=== PATIENT | male | born 1995 | race Caucasian/White ===

== ENCOUNTER 2021-04-30 21:33 | Emergency (ER) | payer BC, SELFPAY ==
[2021-04-30 21:35] VITALS: BP 147/93; PULSE 108; RESP 18; TEMP 36.7; O2SAT 97
--- NOTE | 2021-04-30 21:54 | ED.HEATRA ---
HPI - Head Injury General Chief complaint: Head Injury Stated complaint: baseball to the face - lip lac, missing tooth Time Seen by Provider: 04/30/21 21:49 History of Present Illness HPI Narrative: 25 yo male presents to the ED after being struck by a softball. He was struck in the face by a soft ball shortly before arrival. It knocked out his tooth #8. He also sustained a laceration to the top lip. No LOC. Pain is moderate. Lost tooth in the dirt, but friend found it and is bringing it here. Related Data Allergies Allergy/AdvReac Type Severity Reaction Status Date / Time No Known Allergies Allergy Verified 04/30/21 22:04 Review of Systems Review of Systems: All systems reviewed & are unremarkable except as noted in HPI and below Constitutional: Constitutional: Denies fever(s) Eyes: Eyes: Reports no additional eye complaints and Denies change in vision ENT: Denies dizziness Cardiovascular: Cardiovascular: Denies chest pain Respiratory: Respiratory: Denies dyspnea Gastrointestinal: Gastrointestinal: Denies abdominal pain Neurologic: Denies dizziness and Denies weakness [facility] Past Medical History Medical History BMI 32.0-32.9,adult Surgical History Surgical History History of wisdom tooth extraction Family History Family History Father Heart disease Cerebrovascular accident Mother No problems noted. Sibling No problems noted. Social History Social History Smoking status: Never smoker Tobacco type: cigarettes Second hand tobacco smoke exposure: No Alcohol intake: current Substance use: never Substance use type: does not use Additional occupation/education comments: [employer] Gender identity (if verbalized by the patient): Male Exam Const: General: healthy appearing, no acute distress and alert Orientation/consciousness: patient oriented x3 HENMT: Other: 2 cm irregular laceration through kalia border of upper lip. Tooth 18 complete avulsion Resp: Effort & Inspection: normal respiratory effort Auscultation: clear to auscultation bilaterally Cardio: Rate: regular rate Rhythm: regular rhythm Skin: General skin exam: normal color Neuro: General: patient oriented x3 and moves all extremities Cranial nerves: Yes CN's II-XII intact bilaterally Gait exam (Neuro): Normal gait present Extrem: General: normal to inspection Course Vital Signs Vital signs: Vital Signs Temperature 36.7 C 04/30/21 21:35 Pulse Rate 108 H 04/30/21 21:35 Respiratory Rate 18 04/30/21 21:35 Blood Pressure 147/93 H 04/30/21 21:35 Pulse Oximetry 97 04/30/21 21:35 Temperature 36.7 C 04/30/21 21:35 Pulse Rate 108 H 04/30/21 21:35 Respiratory Rate 18 04/30/21 21:35 Blood Pressure 147/93 H 04/30/21 21:35 Pulse Oximetry 97 04/30/21 21:35 Procedures Laceration Laceration 1: Site: face (upper lip) Side (If applicable): right Size (cm): 2.5 Description: irregular Depth: involves muscle layer Local Anesthetic: lidocaine 1% (infraorbital block) Amount of anesthesia used (mL): 4 Pre-repair: wound explored and irrigated ====== Skin Level ====== Skin layer closed with: other (fast gut) Size (cm): 5-0 Number of sutures: 8 ====== Subcutaneous Layer ====== ====== Muscle Layer ====== ====== Tendon Layer ====== Other Procedure Procedure 1: Other Procedure: Tooth reimplantation An infraorbital nerve block was performed on the right side The tooth was gently rinsed with saline. The socket was then irrigated and clot removed. The tooth was then placed back into the socket ensuring correct postion. This tooth and the surrounding teeth wer
[2021-05-01] MEDS: CLINDAMYCIN HCL 150 MG CAP 300 MG PO (00:25)
[2021-05-01] MEDS: HYDROcodone/acetaminophen (*CRX) 5-325 MG TABLET 1 TAB PO (00:25)
--- NOTE | 2021-05-01 00:28 | PC.NURSE ---
Exit vitals taken on pt, wrote on paperwork that went home with pt by accident. Vitals stable and within normal guidelines.
== END 2021-05-01 00:28 | disposition home or self-care (01) ==
PROVIDERS: Emergency Provider Emergency Medicine; PCP Family Medicine
DX: S03.2XXA Dislocation of tooth, initial encounter (principal); S01.511A Laceration without foreign body of lip, initial encounter; W21.07XA Struck by softball, initial encounter; Y93.64 Activity, baseball
CPT/HCPCS: 12011; 99283; A9270

== ENCOUNTER 2021-05-02 08:26 | Outpatient (CLI) | payer BC, SELFPAY ==
[2021-05-02 09:02] LABS: Basophils Absolute Auto 0.1 K/mm3 (0.0-0.1); Eosinophils Absolute Auto 0.3 K/mm3 (0-0.3); Eosinophils Percent Auto 4.2 % (0-4.4); Hematocrit 48.3 % (42.0-52.0); Hemoglobin 16.6 g/dL (14.0-18.0); Immature Granulocyte Absolute 0.01 K/mm3 (0.00-0.031); Immature Granulocyte Percent A 0.1 % (0-0.5); Lymphocytes Absolute Auto 1.69 K/mm3 (0.9-3.2); Lymphocytes Percent Auto 24.4 % (18.3-44.2); Mean Corpuscular HGB Conc 34.4 g/dl (32-36); Mean Corpuscular Hemoglobin 29.3 pg (26-34); Mean Corpuscular Volume 85.3 fl (80-100); Mean Platelet Volume 10.6 fl (7.4-10.4); Monocytes Absolute Auto 0.6 K/mm3 (0.1-0.6); Monocytes Percent Auto 8.8 % (2.6-8.5); Neutrophils Absolute Auto 4.3 K/mm3 (1.3-6.7); Neutrophils Percent Auto 61.5 % (45.5-73.1); Platelet Count Result 210 k/mm3 (150-375); Red Blood Count 5.66 M/mm3 (4.6-6.20); Red Cell Distribution Width 12.4 % (11.5-14.5); White Blood Count 6.9 K/mm3 (4.5-10.0)
[2021-05-02 09:16] LABS: Alanine Aminotransferase 26 U/L (4-50); Albumin Level 5.1 g/dL (3.5-5.1); Alkaline Phosphatase 53 U/L (38-126); Anion Gap 16 mmol/L (8-16); Aspartate Amino Transferase 25 U/L (17-59); Bilirubin,Total 0.8 mg/dL (0.2-1.3); Blood Urea Nitrogen 19 mg/dL (9-20); Calcium 10.5 mg/dL (8.4-10.2); Carbon Dioxide 20 mmol/L (22-30); Chloride 103 mmol/L (98-107); Cholesterol 249 mg/dL (0-200); Estimated Glomerular Filt Rate > 60; Glucose 95 mg/dL (65-110); HDL Direct 48 mg/dL; Potassium 4.7 mmol/L (3.4-5.0); Sodium 139 mmol/L (137-145); Triglycerides 129 mg/dL (<150)
[2021-05-02 09:26] LABS: LDL Cholesterol Direct 148 mg/dL
[2021-05-06 20:15] LABS: Apolipoprotein B 128 mg/dL (<90)
[2021-05-06 22:47] LABS: Lipoprotein A 27 nmol/L (<75)
== END 2021-05-02 08:27 | disposition home or self-care (01) ==
LOC: ANHLAB 08:29
PROVIDERS: PCP Family Medicine; Visit Provider Nurse Practitioner Family
DX: E78.00 Pure hypercholesterolemia, unspecified (principal); Z82.49 Family history of ischemic heart disease and other diseases of the circulatory system; Z68.32 Body mass index [BMI] 32.0-32.9, adult; Z13.29 Encounter for screening for other suspected endocrine disorder; Z13.220 Encounter for screening for lipoid disorders
CPT/HCPCS: 36415; 80053; 80061; 82172; 83695; 84443; 85025

== ENCOUNTER 2021-05-09 07:48 | Outpatient (CLI) | payer BC, SELFPAY ==
[2021-05-09 08:21] LABS: Calcium 9.8 mg/dL (8.4-10.2)
== END 2021-05-09 07:49 | disposition home or self-care (01) ==
LOC: ANHLAB 07:50
PROVIDERS: PCP Family Medicine; Visit Provider Nurse Practitioner Family
DX: E83.52 Hypercalcemia (principal)
CPT/HCPCS: 36415; 82310

== ENCOUNTER 2022-08-11 17:18 | Emergency (ER) | payer OTHER, SELFPAY ==
--- NOTE | ~2022-08-11 | XR_ITS ---
EXAMINATION: XR chest 2V Exam Date/Time: 08/11/2022 17:42 DISPUTE COORDINATOR HISTORY: cough x's 1 month Comparison: None available. RESULT: Lines, tubes, and devices: None. Lungs and pleura: Clear. Cardiomediastinal silhouette: Unremarkable. Other: No acute osseous or upper abdominal finding. IMPRESSION: No acute cardiopulmonary process. Reviewed, dictated and finalized at location K. UTE COORDINATOR
[2022-08-11 17:40] VITALS: BP 144/79; PULSE 77; RESP 20; TEMP 37.1; O2SAT 99
--- NOTE | 2022-08-11 18:18 | ED.URI ---
HPI - URI/Sore Throat General Chief Complaint: Upper Respiratory Infection Stated Complaint: cough Source: patient Mode of arrival: ambulatory Limitations: no limitations History of Present Illness HPI Narrative: This is a27 year old male that has had bronchitis since Jun and has had a lingering cough and it has continued he thought it had subsided for about 1 week but it then return. Now it is getting worse and he want to stop it because it has been 6 weeks already . Related Data Allergies Allergy/AdvReac Type Severity Reaction Status Date / Time banana Allergy Unknown Verified 08/11/22 17:46 Review of Systems Review of Systems: coughing, and a little congestion with post nasal drip All systems reviewed & are unremarkable except as noted in HPI and below PMFSH Past Medical History Medical History BMI 32.0-32.9,adult Surgical History Surgical History History of wisdom tooth extraction Family History Family History Father Heart disease Cerebrovascular accident Mother No problems noted. Sibling No problems noted. Social History Social History Smoking status: Never smoker Tobacco type: cigarettes Second hand tobacco smoke exposure: No Alcohol intake: current Substance use: never Substance use type: does not use Additional occupation/education comments: [employer] Gender identity (if verbalized by the patient): Male Comments At time as signature, I have reviewed and agree with nursing past medical, social, surgical and family history. Please see nursing chart for further information. There is no relevant family history pertinent to the presenting complaint. Exam Narrative: GENERAL:Well-appearing, well-nourished, and in no acute distress. HEAD:Normocephalic EYES: PERRLA ENT: Nares clear, no rhinorrhea or epistaxis. Mucous membranes moist. CHEST: Clear to scattered intermittent wheezes auscultation. No respiratory distress. HEART: Regular rate and rhythm. Normal peripheral pulses. ABDOMEN: Soft, nontender, nondistended, normal active bowel sounds. EXTREMITIES: Normal range of motion. No edema. SKIN: Warm, dry, no rash. NEURO: No focal deficits. Alert and oriented x3. Course Course Level of Care: Express Care Visit Vital Signs Vital signs: Vital Signs Temperature 98.8 F 08/11/22 17:40 Pulse Rate 77 08/11/22 17:40 Respiratory Rate 20 08/11/22 17:40 Blood Pressure 144/79 H 08/11/22 17:40 Pulse Oximetry 99 08/11/22 17:40 Oxygen Delivery Room Air 08/11/22 17:40 Temperature 98.8 F 08/11/22 17:40 Pulse Rate 77 08/11/22 17:40 Respiratory Rate 20 08/11/22 17:40 Blood Pressure 144/79 H 08/11/22 17:40 Pulse Oximetry 99 08/11/22 17:40 Oxygen Delivery Room Air 08/11/22 17:40 MDM - URI/Sore Throat Differential Diagnosis Differential diagnosis: Likely upper respiratory infection, otitis media, sinusitis, viral infection, bronchitis and influenza Discharge Plan Discharge Clinical Impression: Bronchitis Patient Disposition: Home, Self-Care Condition: Stable Instructions: Antibiotic Form, Chronic Bronchitis (ED) Additional Instructions: Drink plenty of fluids Take medication as directed Prescriptions: New albuterol sulfate [Proventil HFA] 90 mcg/actuation HFA aerosol inhaler 2 puff inhalation QID PRN (Reason: shortness of breath or wheezing) Qty: 8.5 0RF methylprednisolone [Medrol (Harpreet)] 4 mg tablets,dose pack See Rx Instructions .ROUTE .COMPLEX Qty: 21 0RF Rx Instructions: orally per package directions benzonatate 200 mg capsule 200 mg PO TID PRN (Reason: cough) Qty: 14 0RF Follow-up/Referrals: UNKNOWN,DOCTOR [Primary Care Provider] - Time of Disposition: 1
== END 2022-08-11 18:31 | disposition home or self-care (01) ==
PROVIDERS: Emergency Provider Nurse Practitioner Family
DX: J40 Bronchitis, not specified as acute or chronic (principal)
CPT/HCPCS: 71046; 99213; G0463

== ENCOUNTER 2022-12-29 08:30 | Outpatient (CLI) | payer OTHER, SELFPAY ==
[2022-12-29 19:14] LABS: Cholesterol 219 mg/dL (0-200); HDL Direct 30 mg/dL; Triglycerides 177 mg/dL (<150)
[2022-12-29 19:32] LABS: LDL Cholesterol Direct 137 mg/dL
== END 2022-12-29 08:31 | disposition home or self-care (01) ==
LOC: ANHGOSHLAB 08:32
PROVIDERS: Visit Provider Family Medicine
DX: E78.5 Hyperlipidemia, unspecified (principal)
CPT/HCPCS: 36415; 80061

== ENCOUNTER 2023-04-14 10:38 | Outpatient (CLI) | payer OTHER, SELFPAY ==
--- NOTE | 2023-04-14 | ECG_ITS ---
Measurements Intervals [place] Rate: 53 P: 40 WI: 148 QRS: -6 QRSD: 124 T: 31 QT: 430 QTc: 407 Interpretive Statements SINUS BRADYCARDIA RIGHT BUNDLE BRANCH BLOCK ABNORMAL ECG NO PREVIOUS ECG AVAILABLE FOR COMPARISON Electronically Signed On 04-14-2023 11:37:53 CDT by Abdirizak Molina D.O.
== END 2023-04-14 10:39 | disposition home or self-care (01) ==
PROVIDERS: PCP Family Medicine; Visit Provider Nurse Practitioner Adult Health
DX: R00.2 Palpitations (principal); Z82.49 Family history of ischemic heart disease and other diseases of the circulatory system; I45.10 Unspecified right bundle-branch block
CPT/HCPCS: 93005

== ENCOUNTER 2023-05-17 07:23 | Outpatient (CLI) | payer OTHER, SELFPAY ==
--- NOTE | 2023-05-17 | ECHO_ITS ---
Patient Info Name: Justino Molina Age: 27 years : 1995 Gender: Male Ht: 71 in Wt: 236 lbs BSA: 2.35 m2 HR: 65 bpm BP: 131 / 87 mmHg Technical Quality: Good Exam Date: 05/17/2023 7:46 AM Exam Location: [facility] Patient Status: Outpatient Admit Date: 05/17/2023 Staff Ordering Physician: Jennifer, Luis Alberto Valdez APRN [employer] Project Manager: Camryn Perez RDCS Attending Provider: Robbie, Luis Alberto Valdez APRN Referring Physician: Jennifer WEAVER; Exam Type: CA echo doppler color flow Study Info Indications R00.2 - Palpitations Z82.49 - Family history of ischemic heart disease and other diseases of the circulatory system Complete two-dimensional, color flow and Doppler transthoracic echocardiogram is performed. Summary 1. Complete two-dimensional, color flow and Doppler transthoracic echocardiogram is performed. 2. Left ventricular chamber dimension is normal. 3. Left ventricular systolic function is normal, estimated at 60-65%. 4. The left ventricular diastolic function is normal. 5. E/e' 5 is not elevated. 6. Global longitudinal strain is normal at -20.7%. 7. Left atrial chamber dimension is mildly enlarged. 8. There is trace mitral valve regurgitation. 9. There is trace tricuspid valve regurgitation. 10. No pulmonary hypertension, estimated pulmonary arterial systolic pressure is 29 mmHg. 11. There is trace pulmonic regurgitation. Left Ventricle E/e' 5 is not elevated. Global longitudinal strain is normal at -20.7%. Left ventricular chamber dimension is normal. Left ventricular systolic function is normal, estimated at 60-65%. The left ventricular diastolic function is normal. Right Ventricle Right ventricular systolic function is normal and with normal TAPSE 3.2 cm. Right ventricular chamber dimension is normal. Left Atria Left atrial chamber dimension is mildly enlarged. Right Atria Right atrial chamber dimension is normal. Aortic Valve The aortic valve is trileaflet. There is no aortic valve stenosis. There is no aortic valve regurgitation. Pulmonic Valve There is trace pulmonic regurgitation. Mitral Valve There is no mitral valve stenosis. There is trace mitral valve regurgitation. Tricuspid Valve There is trace tricuspid valve regurgitation. No pulmonary hypertension, estimated pulmonary arterial systolic pressure is 29 mmHg. Pericardium/Pleural There is no pericardial effusion. Inferior Vena Cava Normal inferior vena cava with >50% collapse upon inspiration consistent with normal right atrial pressure, 5 mmHg. Aorta The aortic root size at the sinus of Valsalva is normal. Left Ventricular Outflow Tract Name Value Normal LVOT 2D LVOT Diameter 2.0 cm LVOT Doppler LVOT Peak Gradient 5 mmHg LVOT Mean Gradient 3 mmHg LVOT VTI 25 cm LVOT VTI/AV VTI Ratio 0.9 LVOT Stroke Volume 79 ml LVOT CO 4.7 l/min LVOT CI 2.0 l/min/m2 Pulmonic Valve Name
== END 2023-05-17 07:24 | disposition home or self-care (01) ==
PROVIDERS: PCP Family Medicine; Visit Provider Nurse Practitioner Adult Health
DX: R00.2 Palpitations (principal); R06.6 Hiccough; Z82.49 Family history of ischemic heart disease and other diseases of the circulatory system
CPT/HCPCS: 93306

== ENCOUNTER 2023-08-30 07:03 | Outpatient (CLI) | payer OTHER, SELFPAY ==
[2023-08-30 07:38] LABS: Basophils Absolute Auto 0.1 K/mm3 (0.0-0.1); Basophils Percent Auto 0.9 % (0.2-1.2); Eosinophils Absolute Auto 0.6 K/mm3 (0-0.3); Eosinophils Percent Auto 8.1 % (0-4.4); Hematocrit 46.2 % (42.0-52.0); Hemoglobin 15.3 g/dL (14.0-18.0); Immature Granulocyte Absolute 0.01 K/mm3 (0.00-0.031); Immature Granulocyte Percent A 0.1 % (0-0.5); Lymphocytes Absolute Auto 2.58 K/mm3 (0.9-3.2); Lymphocytes Percent Auto 37.9 % (18.3-44.2); Mean Corpuscular HGB Conc 33.1 g/dl (32-36); Mean Corpuscular Hemoglobin 29.1 pg (26-34); Mean Corpuscular Volume 87.8 fl (80-100); Mean Platelet Volume 10.4 fl (7.4-10.4); Monocytes Absolute Auto 0.4 K/mm3 (0.1-0.6); Neutrophils Absolute Auto 3.2 K/mm3 (1.3-6.7); Platelet Count Result 219 k/mm3 (150-375); Red Blood Count 5.26 M/mm3 (4.6-6.20); Red Cell Distribution Width 12.7 % (11.5-14.5); White Blood Count 6.8 K/mm3 (4.5-10.0)
[2023-08-30 08:58] LABS: Alanine Aminotransferase 35 U/L (6-50); Albumin Level 4.5 g/dL (3.5-5.1); Alkaline Phosphatase 38 U/L (38-126); Anion Gap 11 mmol/L (8-16); Aspartate Amino Transferase 28 U/L (17-59); Bilirubin,Total 0.7 mg/dL (0.2-1.3); Blood Urea Nitrogen 14 mg/dL (9-20); Calcium 9.4 mg/dL (8.4-10.2); Carbon Dioxide 25 mmol/L (22-30); Chloride 103 mmol/L (98-107); Cholesterol 222 mg/dL (0-200); Estimated Glomerular Filt Rate > 60; Glucose 92 mg/dL (65-110); HDL Direct 38 mg/dL; Sodium 139 mmol/L (137-145); Triglycerides 237 mg/dL (<150)
[2023-08-30 09:09] LABS: LDL Cholesterol Direct 133 mg/dL
[2023-08-30 09:33] LABS: Total Triiodothyronine (T3) 1.31 NG/ML (0.97-1.69)
[2023-08-30 09:42] LABS: Free T4 Free Thyroxine 1.13 ng/mL (0.78-2.19); Vitamin D 25 Hydroxy 29.9 ng/mL
[2023-08-30 11:42] LABS: Creatinine Urine 131.5 mg/dL
[2023-08-30 12:25] LABS: MALB Creatinine Ratio < 4.6 mg/g (0-30); Microalbumin Urine Random < 6.0 mg/L (0-16.7)
== END 2023-08-30 07:04 | disposition home or self-care (01) ==
LOC: ANHLAB 07:05
PROVIDERS: PCP Family Medicine; Visit Provider Nurse Practitioner Adult Health
DX: E78.5 Hyperlipidemia, unspecified (principal); R53.83 Other fatigue; R53.1 Weakness; I10 Essential (primary) hypertension; Z00.00 Encounter for general adult medical examination without abnormal findings; E55.9 Vitamin D deficiency, unspecified
CPT/HCPCS: 36415; 80053; 80061; 82043; 82306; 84439; 84443; 84480; 85025

== ENCOUNTER 2024-04-04 10:07 | Outpatient (CLI) | payer OTHER, SELFPAY ==
[2024-04-04 14:04] LABS: Cholesterol 207 mg/dL (0-200); HDL Direct 36 mg/dL; Triglycerides 151 mg/dL (<150)
[2024-04-04 14:16] LABS: LDL Cholesterol Direct 134 mg/dL
== END 2024-04-04 10:08 | disposition home or self-care (01) ==
LOC: ANHGOSHLAB 10:09
PROVIDERS: PCP Family Medicine; Visit Provider Family Medicine
DX: E78.5 Hyperlipidemia, unspecified (principal)
CPT/HCPCS: 36415; 80061

== ENCOUNTER 2024-05-19 19:10 | Emergency (ER) | payer BC, OTHER, SELFPAY ==
[2024-05-19 19:18] VITALS: BP 139/78; PULSE 60; RESP 16; TEMP 36.9; O2SAT 99
--- NOTE | 2024-05-19 19:41 | ED.GENADULT ---
HPI - General Adult General Chief complaint: Back Pain/Injury Stated complaint: R SIDE RIB/CHEST PAIN Time Seen by Provider: 05/19/24 19:33 Source: patient and RN notes reviewed Mode of arrival: ambulatory Limitations: no limitations History of Present Illness HPI narrative: Patient presents today complaining of right lower anterior rib pain. Symptoms began 6 days ago after he was throwing a baseball and worsened again after he picked up his child today. Denies shortness of breath or any additional symptoms. Pain increases with movement of the right arm and deep breath. He has been taking Tylenol and ibuprofen with some relief. Related Data Home Medications Medication Instructions Recorded Confirmed No Home Medications 06/22/23 06/22/23 Allergies Allergy/AdvReac Type Severity Reaction Status Date / Time banana Allergy Unknown Verified 06/22/23 15:16 Review of Systems Review of Systems: CONSTITUTIONAL: Denies body aches, fever, chills, or sweats. EYES: Denies visual changes, redness, or discharge. ENT: Denies rhinorrhea, congestion, sore throat, or otalgia. CARDIOVASCULAR: Denies chest pain, palpitations, or edema. RESPIRATORY: Denies cough or dyspnea. GASTROINTESTINAL: Denies abdominal pain, nausea, vomiting, or diarrhea. GENITOURINARY: Denies dysuria or hematuria. SKIN: Denies rash, itching, or wounds. MUSCULOSKELETAL: Denies back pain, joint pain, or myalgia.+ chest wall pain NEUROLOGIC: Denies headache, numbness, tingling, or weakness. PSYCH: Denies depression or anxiety. COUNTS INCLUDE 234 BEDS AT THE [facility] Past Medical History Medical History BMI 32.0-32.9,adult Surgical History Surgical History History of wisdom tooth extraction Family History Family History Father Heart disease Cerebrovascular accident Mother No problems noted. Sibling No problems noted. Social History Social History Smoking status: Never smoker Tobacco type: cigarettes Second hand tobacco smoke exposure: No Alcohol intake: current Substance use: never Substance use type: does not use Living arrangements: with family Occupation/Education: occupation Additional occupation/education comments: [employer] Gender identity (if verbalized by the patient): Male Comments At time of signature, I have reviewed and agree with nursing past medical, surgical, social and family history unless otherwise noted. Please see nursing chart for further information. There is no relevant family history pertinent to the presenting complaint Exam Narrative: GENERAL: Well-appearing, well-nourished, and in no acute distress. HEAD: Normocephalic, atraumatic. EYES: EOMI. No redness or drainage. Conjunctivae normal. ENT: Mucous membranes pink and moist. NECK: Normal AROM. CHEST: No respiratory distress. Clear to auscultation. Point tenderness of the right lower anterior ribs. No crepitus, step-off, deformity, edema noted. HEART: Regular rate and rhythm. No murmur appreciated. Normal peripheral pulses. EXTREMITIES: Normal range of motion. No edema. SKIN: Warm, dry, no rash. Capillary refill normal. Normal skin turgor. NEURO: No focal deficits. Alert and oriented x3. Gait steady. PSYCH: Normal affect. No signs of depression or anxiety. Course Course Level of Care: Express Care Visit Vital Signs Vital signs: Vital Signs Temperature 98.5 F 05/19/24 19:18 Pulse Rate 60 05/19/24 19:18 Respiratory Rate 16 05/19/24 19:18 Blood Pressure 139/78 05/19/24 19:18 Pulse Oximetry 99 05/19/24 19:18 Temperature 98.5 F 05/19/24 19:18 Pulse Rate 60 05/19/24 19:18 Respiratory Rate 16 05/19/24 19:18 Blood Pressure 139/78 05/19/24 19:18 Pulse Oximetry 99 05/19/24
== END 2024-05-19 19:50 | disposition home or self-care (01) ==
PROVIDERS: Emergency Provider Nurse Practitioner; PCP Family Medicine
DX: S29.011A Strain of muscle and tendon of front wall of thorax, initial encounter (principal); X58.XXXA Exposure to other specified factors, initial encounter
CPT/HCPCS: 99212; G0463

== ENCOUNTER 2024-07-30 21:55 | Emergency (ER) | payer BC, OTHER, SELFPAY ==
[2024-07-30 21:56] VITALS: BP 114/73; PULSE 86; RESP 16; TEMP 36.7; O2SAT 100
[2024-07-30 22:23] LABS: Basophils Percent Auto 0.3 % (0.2-1.2); Eosinophils Absolute Auto 0.4 K/mm3 (0-0.3); Eosinophils Percent Auto 2.6 % (0-4.4); Hematocrit 46.7 % (42.0-52.0); Hemoglobin 16.8 g/dL (14.0-18.0); Immature Granulocyte Absolute 0.03 K/mm3 (0.00-0.031); Immature Granulocyte Percent A 0.2 % (0-0.5); Lymphocytes Absolute Auto 1.72 K/mm3 (0.9-3.2); Lymphocytes Percent Auto 12.8 % (18.3-44.2); Mean Corpuscular Volume 83.4 fl (80-100); Mean Platelet Volume 10.1 fl (7.4-10.4); Monocytes Absolute Auto 1.1 K/mm3 (0.1-0.6); Monocytes Percent Auto 7.8 % (2.6-8.5); Neutrophils Absolute Auto 10.2 K/mm3 (1.3-6.7); Neutrophils Percent Auto 76.3 % (45.5-73.1); Platelet Count Result 221 k/mm3 (150-375); Red Cell Distribution Width 12.6 % (11.5-14.5); White Blood Count 13.4 K/mm3 (4.5-10.0)
[2024-07-30 22:42] LABS: Alanine Aminotransferase 40 U/L (6-50); Albumin Level 5.4 g/dL (3.5-5.1); Alkaline Phosphatase 46 U/L (38-126); Aspartate Amino Transferase 31 U/L (17-59); Blood Urea Nitrogen 18 mg/dL (9-20); Calcium 10.1 mg/dL (8.4-10.2); Chloride 102 mmol/L (98-107); Estimated CRCL calculation 117 ml/min; Estimated Glomerular Filt Rate > 60; Glucose 127 mg/dL (65-110); Lipase 60 U/L (23-300); Potassium 4.2 mmol/L (3.4-5.0); Sodium 139 mmol/L (137-145)
[2024-07-30 22:59] LABS: Influenza A QL RT-PCR Negative (Negative); Influenza B QL RT-PCR Negative (Negative); RSV RNA, RT-PCR Negative (Negative); SARS-CoV-2 RNA PCR Negative (Negative)
--- NOTE | 2024-07-30 22:59 | ED.NAVMDI ---
HPI - Nausea/Vomiting/Diarrhea General Chief complaint: Nausea/Vomiting/Diarrhea Stated complaint: puking shaking body aches diarrhea Time Seen by Provider: 07/30/24 22:41 Source: patient Mode of arrival: ambulatory Limitations: no limitations History of Present Illness HPI Narrative: This is a 29-year-old male who presents to the ED for chief complaint of N/V/D beginning this morning. Reports that he has had associated body aches, chills, cough and rhinorrhea. 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 Patient states that he started to have some more back pain and abdominal pain after the many episodes of vomiting and diarrhea. Denies any GI bleeding symptoms. Denies urinary symptoms. Related Data Allergies Allergy/AdvReac Type Severity Reaction Status Date / Time banana Allergy Unknown Verified 06/22/23 15:16 Review of Systems Review of Systems: All systems as dictated in HPI PMFSH Past Medical History Medical History BMI 32.0-32.9,adult Surgical History Surgical History History of wisdom tooth extraction Family History Family History Father Heart disease Cerebrovascular accident Mother No problems noted. Sibling No problems noted. Social History Social History Smoking status: Never smoker Tobacco type: cigarettes Second hand tobacco smoke exposure: No Alcohol intake: current Substance use: never Substance use type: does not use Living arrangements: with family Occupation/Education: occupation Additional occupation/education comments: [employer] Gender identity (if verbalized by the patient): Male Exam Narrative: GENERAL: Well-appearing, well-nourished, and in no acute distress. HEAD: Normocephalic, atraumatic. EYES: PERRLA and EOMI. ENT: Nares clear, no rhinorrhea or epistaxis. Mucous membranes moist. Oropharynx without tonsillar hypertrophy exudate or other lesions. NECK: Supple. No adenopathy or masses. CHEST: No respiratory distress. Clear to auscultation. No wheezes rales or rhonchi HEART: Regular rate and rhythm. No murmur heard. Normal peripheral pulses. ABDOMEN: Soft, nontender, nondistended, normal active bowel sounds. MSK: Normal range of motion. No edema. SKIN: Warm, dry, no rash. NEURO: Alert and oriented x4. No focal deficits. PSYCH: Normal mood and affect. Course Vital Signs Vital signs: Vital Signs Temperature 98.0 F 07/30/24 21:56 Pulse Rate 86 07/30/24 21:56 Respiratory Rate 16 07/30/24 21:56 Blood Pressure 114/73 07/30/24 21:56 Pulse Oximetry 100 07/30/24 21:56 Temperature 98.0 F 07/30/24 21:56 Pulse Rate 75 07/31/24 00:33 Respiratory Rate 17 07/31/24 00:33 Blood Pressure 123/62 07/31/24 00:33 Pulse Oximetry 100 07/31/24 00:33 Oxygen Delivery Room Air 07/30/24 23:43 MDM - Nausea/Vomiting/Diarrhea MDM Narrative Medical decision making narrative: This is a 29 yo male who presents to the ED for chief complaint of N/V/D. Vitals are normal. Exam shows no abdominal tenderness. No evidence of acute abdomen. Presentation most likely consistent with viral gastroenteritis Lab work shows mildly elevated white count 13.4, consistent with acute phase reaction with vomiting. CMP and electrolytes are normal. Viral swabs are negative. Patient is feeling much improved after a L of fluids, antiemetics and Toradol. Patient will be discharged in stable condition. Supportive measures discussed and return precautions given. Patient is understanding and agreeable with plan for discharge with PCP follow-up. Lab Data 07/30/24 22:18 07/30/24 22:18 Labs: Lab Results 07/30/24 Range/Units 22:18 WBC 13.4 H (4.5-10.0) K/mm3 RBC 5.60 (4.6-6.20) M/mm3 Hgb 16.8 (14.0-18.0) g/dL Hct 46.7 (42.0-52.0) % MCV 83.4 (80-100) fl MCH 30.0 (26-34) pg MCHC 36.0 (32-36) g/dl RDW 12.6 (11.5-14.5) % Plt Count 221 (150-375) k/mm3 MPV 10.1 (7.4-10.4) fl Immature Gran % (Auto) 0.2 (0-0.5) % Neut % (Auto) 76.3 H (45.5-73.1) % Lymph % (Auto) 12.8 L (18.3-44.2) % [place] % (Auto) 7.8 (2.6-8.5) % Eos % (Auto) 2.6 (0-4.4) % Baso % (Auto) 0.3 (0.2-1.2) % Lymph # (Auto) 1.72 (0.9-3.2) K/mm3 [place] # (Auto) 1.1 H (0.1-0.6) K/mm3 Eos # (Auto) 0.4 H (0-0.3) K/mm3 Baso # (Auto) 0.0 (0.0-0.1) K/mm3 Abs Immat Gran (auto) 0.03 (0.00-0.031) K/mm3 Absolute Neuts (auto) 10.2 H (1.3-6.7) K/mm3 Absolute Nucleated RBC 0.000 (0.0-0.012) K/mm3 Nucleated RBC % 0.0 (0.0-0.2) % Sodium 139 (137-145) mmol/L Potassium 4.2 (3.4-5.0) mmol/L Chloride 102 (98-107) mmol/L Carbon Dioxide 25 (22-30) mmol/L Anion Gap 12 (4-12) mmol/L BUN 18 (9-20) mg/dL Creatinine 1.00 (0.7-1.3) mg/dL Estim Creat Clear Calc 117 ml/min Estimated GFR > 60 (59 - ) Glucose 127 H (65-110) mg/dL Calcium 10.1 (8.4-10.2) mg/dL Total Bilirubin 1.0 (0.2-1.3) mg/dL AST 31 (17-59) U/L ALT 40 (6-50) U/L Alkaline Phosphatase 46 (38-126) U/L Total Protein 9.0 H (6.3-8.2) g/dL Albumin 5.4 H (3.5-5.1) g/dL Lipase 60 (23-300) U/L Influenza A (RT-PCR) Negative (Negative) Influenza B (RT-PCR) Negative (Negative) RSV (RT-PCR) Negative (Negative) SARS-CoV-2 RNA (RT-PCR) Negative (Negative) Discharge Plan Discharge Clinical Impression: Gastroenteritis Patient Disposition: Home, Self-Care Condition: Stable Instructions: Antibiotic Form Additional Instructions: Your exam and up today are reassuring. This is probably just a stomach bug, which will past over the next several days. Please take Zofran as needed for nausea. For any body aches or chills that arise, take Tylenol and ibuprofen every 6 hours. Please stay very well hydrated at home. Follow-up with PCP. If you have any new or worsening symptoms please return to the ER for further evaluation. Prescriptions: New ondansetron 4 mg tablet,disintegrating 4 mg PO Q8H PRN (Reason: nausea and vomiting) Qty: 10 0RF Follow-up/Referrals: Magan Olivas MD [Primary Care Provider] - Time of Disposition: 23:54
[2024-07-30 23:00] LABS: Anion Gap 12 mmol/L (4-12); Carbon Dioxide 25 mmol/L (22-30)
[2024-07-30] MEDS: KETOROLAC 15 MG/ML VIAL (*BKC) IV PUSH (23:14)
[2024-07-30] MEDS: ONDANSETRON INJ 4 MG/2 ML VIAL IV PUSH (23:14)
[2024-07-30] MEDS: SODIUM CHLORIDE 0.9% IV 1,000 ML 999 ML IV CONT (23:15)
[2024-07-30 23:43] VITALS: O2SAT 99
--- NOTE | 2024-07-31 00:06 | PC.NURSE ---
Patient able to hold water down. Patient states I feel much better, like a man again. ERP notified.
[2024-07-31 00:33] VITALS: BP 123/62; PULSE 75; RESP 17; O2SAT 100
== END 2024-07-31 00:35 | disposition home or self-care (01) ==
PROVIDERS: Emergency Provider Physician Assistant; PCP Family Medicine
DX: K52.9 Noninfective gastroenteritis and colitis, unspecified (principal); Z20.822 Contact with and (suspected) exposure to COVID-19
CPT/HCPCS: 36415; 80053; 83690; 85025; 87637; 96361; 96374; 96375; 99284; J1885; J2405; J7030

== ENCOUNTER 2024-12-22 15:30 | Outpatient (RCR) | payer BC, OTHER, SELFPAY ==
--- NOTE | 2024-11-15 16:22 | OPREHPOC ---
Outpatient Therapy Plan of Care This is a Multidisciplinary Plan of Care that may contain components documented by all disciplines (PT, OT, and ST.) PT Problem 1 PT Problem #1 Knowledge Deficit PT Goal 1 Goal / Goal Update *indep with HEP * demonstrate correct position with computer work Target Visit 6 PT Problem 2 PT Problem #2 Pain PT Goal 1 Goal / Goal Update * pt report pain rating at the worst of 3/10 to improve use of L arm with home tasks and activity Target Visit 6 PT Problem 3 PT Problem #3 Impaired Strength PT Goal 1 Goal / Goal Update 1* pt perform standing and weight bearing on L UE and elbow extension without pain increase; to simulate making the bed 2*pt perform bilateral UE lifting of 20# box from floor/waist height without pain increase Target Visit 6
--- NOTE | 2024-11-15 16:22 | PTOPEVAL1 ---
Assessment and note entered by Tania Beltran, PT Evaluation Information Assessment Status Evaluation ICD-10 Condition Codes (PT) Pain in left shoulder M25.512 Onset Aug 2024 Subjective Information around Thanksgiving time, with sleeping, woke up and shoulder felt funny, wiggled it around and feel like he popped it back in place; pain is less than it was, but still there; active- plays soft ball and base ball; no imaging of shoulder; R hand dominant; activity: computer work; active lifestyle Reported Pain Level Pain Score Self Report Additional Pain Score Comments pain in the past week 0-7/10; anterior shoulder and lateral GH joint; radicular into mid deltoid increase pain: pushing down to change bed sheets; when first wake up in morning decrease pain: stretch arm, ice, over the counter meds with sleeping; sleeping position on R/L side or prone Assessment PT Clinical Summary Justino has the diagnosis of L shoulder pain. Onset in August and has improved since then. He is R hand dominant, active- plays softball and base ball, and has a 16 month old child--lifting and car seat. Work is on computer. With the evaluation: pain over anterior shoulder/ proximal biceps and pec area; supraspinatus resistance increase pain; full, active shoulder ROM without pain; slightly rounded shoulders and flat thoracic area. Skilled PT services are indicated for modalities to decrease pain, therapeutic exercises to improve GH position and posture with education for HEP and body mechanics. Plan of Care Interventions Electrical Stimulation,Hot Pack/Cold Pack,Manual Therapy,Neuro Re-education,Patient/Caregiver Education,Therapeutic Activities,Therapeutic Exercise,Ultrasound,Other Other Interventions taping PT Services Indicated Yes Treatment Frequency and 1-2x/wk for 6 visits Duration These treatments will address the objective and functional deficits as defined above. The patient will be advanced safely and appropriately in order for the patient to progress towards his/her prior level of function. Additional exercises will be introduced and as well as a comprehensive home exercise program upon discharge, if needed, ?to ensure carryover of functional gains achieved in the clinic. This treatment plan has been reviewed and agreement upon by the patient.
--- NOTE | 2024-12-08 16:07 | PCPTNOTE ---
Pt canceled due to sick child.
--- NOTE | 2024-12-22 16:05 | PTOPDC ---
Assessment and note entered by Tania Beltran, PT Assessment Status Discharge ICD-10 Condition Codes (PT) Pain in left shoulder M25.512 Onset Aug 2024 Subjective Information shoulder is doing much better, but few days ago, helping brother in law change the oil in his car, had to use impact wrench to loosen the bolt, lying on my back and irritated the shoulder; have been doing the exercises and they help; feel like ready to be finished with therapy. Reported Pain Level Pain Score Self Report Additional Pain Score Comments pain range in the past week 0-3/10; tight and pulls- pec/proximal biceps increase pain: lifting, holding son decrease pain: rest, stretching, good posture no issues with sleeping; is able to make the bed OK taking over the counter PRN; Assessment PT Clinical Summary Justino has received 5 PT sessions. Compared to the initial evaluation: improved in all areas: pain now 0-3/10; active L shoulder motions without pain; increase strength of L shoulder-scapular complex with good posture; self assessment with QUICK DASH rating of 9% limitation in activity level; education completed for HEP, posture, body mechanics completed. The goals were achieved. Discharge PT services. Plan of Care PT Services Indicated No
== END 2024-12-25 08:52 | disposition home or self-care (01) ==
LOC: ANHPT 15:30
PROVIDERS: PCP Family Medicine; Visit Provider Family Medicine
DX: M25.512 Pain in left shoulder (principal); E78.5 Hyperlipidemia, unspecified
CPT/HCPCS: 97014; 97110; 97161; 97530; G0283

== ENCOUNTER 2025-04-18 08:12 | Emergency (ER) | payer BC, OTHER, SELFPAY ==
[2025-04-18 08:26] VITALS: BP 137/92; PULSE 60; RESP 16; TEMP 36.8; O2SAT 100
--- NOTE | 2025-04-18 08:54 | ED_ITS ---
HPI - Skin/Abscess/Foreign Bdy General Chief complaint: Skin/Abscess/Foreign Body Stated complaint: INSECT BITE Time Seen by Provider: 04/18/25 08:40 Source: patient and RN notes reviewed Mode of arrival: ambulatory Limitations: no limitations History of Present Illness HPI narrative: To 29-year-old male presents Express Care complaining of possible tick bite. Patient said 3 days ago he was [place] when he believes symptoms but in there. Patient did not see a tick on him with since then has developed a rash on the left side of his chest that looks like a bull's eye. Patient also reports having headache, diarrhea, and some swollen lymph nodes to his left armpit. Patient denies any lethargy, neck stiffness, body aches, muscle aches, joint pain, fatigue, abdominal pain, nausea, vomiting, chest pains, palpitations, or any other symptoms. Patient did not travel to any and to make area of Lyme disease. Related Data Allergies Allergy/AdvReac Type Severity Reaction Status Date / Time banana Allergy Unknown Verified 04/18/25 08:26 Review of Systems Review of Systems: CONSTITUTIONAL: Denies fever, body aches, fatigue, malaise, chills, or sweats. EYES: Denies visual changes, redness, or discharge. ENT: Denies rhinorrhea, congestion, sore throat, or otalgia. CARDIOVASCULAR: Denies chest pain, palpitations, or edema. RESPIRATORY: Denies cough or dyspnea. GASTROINTESTINAL: Denies abdominal pain, nausea, vomiting, Positive for diarrhea. GENITOURINARY: Denies dysuria or hematuria. SKIN: Positive for rash. Negative for itching. MUSCULOSKELETAL: Denies back pain, joint pain, or myalgia. NEUROLOGIC: Positive for headaches. Negative for seizures, numbness, or weakness. PSYCHIATRIC: Denies anxiety or depression. All other systems reviewed are negative, except as documented in HPI. [facility] Past Medical History Medical History BMI 32.0-32.9,adult Surgical History Surgical History History of wisdom tooth extraction Family History Family History Father Heart disease Cerebrovascular accident Mother No problems noted. Sibling No problems noted. Social History Social History Smoking status: Never smoker Tobacco type: cigarettes Second hand tobacco smoke exposure: No Alcohol intake: current Substance use: never Substance use type: does not use Living arrangements: with family Occupation/Education: occupation Additional occupation/education comments: [employer] Gender identity (if verbalized by the patient): Male Comments At the time of my signature, I reviewed and agree with the nursing past medical, surgical, social, and family history. There is no relevant family history pertinent to the patient complaint. Exam Narrative: GENERAL: This is a well-nourished, well-developed adult, in no apparent distress. They are non ill-appearing, nontoxic appearing. HEAD: normocephalic, atraumatic. EYES: Sclera clear/white. Conjunctiva normal. Vision is grossly intact. Extraocular movements intact EARS: External ears normal, NOSE: External nose normal THROAT: Mucous membranes moist, NECK: Neck supple, non-tender without lymphadenopathy, masses or thyromegaly. CARDIOVASCULAR: Regular rate and rhythm Left Axilla: Mild lymphadenopathy to the left axilla. RESPIRATORY: Respiratory rate normal, respiratory effort nonlabored, no respiratory distress SKIN: Left upper chest: Macular erythema measuring approximately 3 cm x 3 cm that is circular with a central puncture wound that is deeper red and erythematous measuring approximately 1 cm x 1 cm, than the surrounding erythema. Slight central clearing is noted. Mild tenderness to palpation. Exudate, no area of fluctuance, no induration. NEURO: awake, alert, and oriented to person, place and time. There were no obvious focal neurologic abnormalities. EXTREMITIES: No joint tenderness, effusion, or edema noted. BACK: Nontender without deformity. Course Course Emergency Course: Portions of this record may have been created with voice recognition software Level of Care: Express Care Visit Vital Signs Vital signs: Vital Signs Temperature 98.3 F 04/18/25 08:26 Pulse Rate 60 04/18/25 08:26 Respiratory Rate 16 04/18/25 08:26 Blood Pressure 137/92 H 04/18/25 08:26 Pulse Oximetry 100 04/18/25 08:26 Temperature 98.3 F 04/18/25 08:26 Pulse Rate 60 04/18/25 08:26 Respiratory Rate 16 04/18/25 08:26 Blood Pressure 137/92 H 04/18/25 08:26 Pulse Oximetry 100 04/18/25 08:26 Reviewed MDM - Skin/Abscess/Foreign Bdy MDM Narrative Medical decision making narrative: Patient is not entirely sure if use bit by tick however the wound is concerning given the central clearance and symptoms patient is having. Will go ahead and cover for Lyme disease of doxycycline. Likely localized early disease if it is. Discussed physical exam findings. Advised supportive measures and signs/symp toms to go to the ER. Pt is appropriate for outpt treatment and f/u. Differential Diagnosis Differential diagnosis: Likely cellulitis and other (Tick bite, insect bite, Lyme disease, Wolsey spotted fever) Critical Care Time Critical Care Time Critical Care Time: No Discharge Plan Discharge Clinical Impression: Tick bite Qualifiers: Encounter type: initial encounter Site of tick bite: thoracic wall Front or back of thoracic wall: front Thoracic wall location detail: left Qualified Code(s): S20.362A - Insect bite (nonvenomous) of left front wall of thorax, initial encounter Patient Disposition: Home Condition: Stable Instructions: Antibiotic Form, Lyme Disease (ED), Tick Bite (ED) Additional Instructions: Take doxycycline as directed. Please wear sunscreen while taking doxycycline. Monitor your symptoms closely. Follow-up with your PCP in 3-5 days. Please go to the ER if you develop chest pains, abdominal pain, nausea, vomiting increased lethargy neck stiffness, muscle aches, joint pains, severe headaches, worsening symptoms, or any other concerns. Patient Language: [place] Prescriptions: New doxycycline monohydrate 100 mg capsule 100 mg PO BID 10 Days Qty: 20 0RF Follow-up/Referrals: Magan Olivas MD [Primary Care Provider] - Time of Disposition: 08:54
== END 2025-04-18 08:57 | disposition home or self-care (01) ==
PROVIDERS: PCP Family Medicine
DX: S20.362A Insect bite (nonvenomous) of left front wall of thorax, initial encounter (principal); W57.XXXA Bitten or stung by nonvenomous insect and other nonvenomous arthropods, initial encounter
CPT/HCPCS: 99213; G0463